=== PATIENT | male | born 1935 | race African-American/Black ===

== ENCOUNTER 2019-02-27 02:06 | Inpatient (IN) | payer OTHER ==
[~2019-02-27] VITALS: Ht 175.3 cm; Wt 86.2 kg
[2019-02-27] VITALS (8 sets, daily range): BP systolic 111–176; BP diastolic 65–91
--- NOTE | ~2019-02-27 | H ---
[facility] [place] [address] HISTORY AND PHYSICAL Name: MALINDA JOHNSON JR Room #: 215-P ADM IN M.R.#: [id number] Admission: 02/27/19 ������������������ Attend Phys: Roshan Emanuel MD Discharge: ������������������ Date of : 39 Report #: [id number] THIS REPORT FOR: //name// CC: Roshan Emanuel DATE OF SERVICE: 02/27/2019 ATTENDING PHYSICIAN: Dr. Emanuel. CHIEF COMPLAINT: Found to be confused and lying on the floor in the middle of the night. HISTORY OF PRESENT ILLNESS: The patient is an 83-year-old male who complains of having urinary frequency and nocturia. Reports that his called the paramedics when she found him on the floor last night. The patient's blood sugar was checked and it was low in the 40s. The patient was taken to the Emergency Room at [facility] where he was evaluated. The patient was noted to have elevated troponin and some cardiac murmur. He denied having any chest pain, did not complain of any breathing difficulty. Since his blood sugar has been normalized, he has been alert and denies having any headache or any focal weakness. On his lab work, it is also noted that his urine was positive for nitrites with increased white cells. PAST MEDICAL HISTORY: Significant for a history of hypertension, diabetes mellitus type 2, dyslipidemia and benign prostatic hypertrophy. MEDICATIONS: He has been on his glimepiride 2 mg daily, metformin 500 mg 3 times a day, Sensipar 30 mg daily, aspirin 325 mg daily, tamsulosin 0.4 mg daily, atorvastatin 10 mg daily, lisinopril 20 mg daily. ALLERGIES: He is not known to be allergic to medication. SOCIAL HISTORY: He is , lives with his . He does not smoke. He drinks alcohol occasionally. REVIEW OF SYSTEMS: He did not have any chest pain, headache, visual symptoms, nausea, vomiting, abdominal pain or any focal weakness. PHYSICAL EXAMINATION: GENERAL: Pleasant elderly gentleman who was sitting by the bed. He did not appear to be in any distress. He was awake, alert, oriented to place and person. VITAL SIGNS: He was afebrile, pulse of 93 per minute and regular, respiratory rate was 17, blood pressure was elevated at 172/89, oxygen saturation 100% on room air. HEENT: Skull was atraumatic. There was no pallor, no icterus. Mucosa was [facility] [address] [place] [address] HISTORY AND PHYSICAL Name: MALINDA JOHNSON Room #: 215-P [facility] IN [facility]#: [id number] Admission: 02/27/19 ������������������ Attend Phys: Roshan Emanuel MD Discharge: ������������������ Date of : 39 Report #: [id number]. NECK: Supple. LUNGS: Clear to auscultation bilaterally with no wheezing or crackles. HEART: First and second heart sounds with a short ejection systolic murmur. There was no gallop. ABDOMEN: Soft, nontender, bowel sounds normally heard. EXTREMITIES: Did not reveal any edema. NEUROLOGIC: Cranial nerve examination was normal. Speech was normal. The patient was moving all 4 extremities equally and normally. LABORATORY DATA: Labs on admission showed a troponin of 0.1, glucose was 78. This morning, white cell count was 6.6, hemoglobin 11.6, hematocrit 35.9 and a platelet count of 156. Sodium was 141, potassium 3.8, chloride of 108, bicarbonate of 24, BUN of 19, creatinine of 1.2, glucose was 97 in the morning labs and UA done was positive for blood with positive nitrites and large number of white cells. ASSESSMENT: 1. Hypoglycemia. 2. Elevated troponin. 3. Suspect urinary tract infection. 4. Hypertension. 5. Dyslipidemia. 6. Diabetes mellitus type 2. PLAN: To restart his blood pressure medication and also start him on Keflex p.o., await the urine culture and have a cardiology consultation for evaluation of the cardiac murmur and monitor him closely regarding his elevated troponin in the Coronary Care Unit. Also, we will hold his diabetic medications and monitor his blood sugars this today. ��������������������������������������������� ���������������������������������������� By: ��������������������������������������������� 0933 1036 Rosalee Euceda MD /nt
[~2019-02-27 02:06] MED LIST: DIABETA 5MG TABL5 MG PO; HYTRIN 2MG CAPSU2 M1 PO; LISINOPRIL10 MG PO; METFORMIN HCL500 MG PO; NAPROSYN500 MG PO; NORCO 5-325 TA1 EACH PO; SIMVASTATIN40 MG PO
[2019-02-27] MEDS ORDERED: AMARYL2 MG PO (02:30)
[2019-02-27] MEDS ORDERED: METFORMIN HCL500 MG PO (02:31)
[2019-02-27] MEDS ORDERED: SENSIPAR 30 MG30 M1 PO (02:32)
[2019-02-27] MEDS ORDERED: ASPIRIN325 PO (02:32)
[2019-02-27] MEDS ORDERED: FLOMAX0.4 MG PO (02:32)
[2019-02-27] MEDS ORDERED: LIPITOR10 MG PO (02:33)
[2019-02-27] MEDS ORDERED: LISINOPRIL20 MG PO (02:34)
[2019-02-27 02:38] LABS: URINE BILIRUBIN NEGATIVE (Negative); URINE BLOOD 3+ (Negative); URINE CLARITY CLEAR; URINE COLOR YELLOW; URINE GLUCOSE-RANDOM* NEGATIVE (Negative); URINE KETONES NEGATIVE (Negative); URINE PROTEIN (DIPSTICK) 1+ (Negative); URINE SPECIFIC GRAVITY 1.025 (1.005-1.035); URINE UROBILINOGEN 0.2 E.U./dl (0.2-1.0)
[2019-02-27 02:47] LABS: ABSOLUTE NEUTROPHILS 5.1 thou/uL (1.4-8.2); BASOPHILS 0.9 % (0.0-2.0); EOSINOPHILS 1.5 % (0.0-3.0); HEMATOCRIT 35.9 % (42.0-52.0); HEMOGLOBIN 11.6 gm/dL (14.0-18.0); LYMPHOCYTES 12.1 % (24.0-44.0); MCH 29.5 pg (26.0-34.0); MCHC 32.2 g/dL (28.0-37.0); MCV 91.6 fL (80.0-100.0); MONOCYTES 8.1 % (1.0-8.0); PLATELET COUNT 156 thou/uL (150-400); POLYS 77.4 % (36.0-66.0); RBC 3.92 mil/uL (4.50-6.00); RDW 14.3 % (10.5-14.5); WBC 6.6 thou/uL (4.0-11.0)
[2019-02-27 02:47] LABS: BACTERIA-REFLEX >30 Many /HPF (None Seen); CRYSTALS None Seen /LPF (None Seen); FINE GRANULAR CASTS 0-3 Few /LPF (None Seen); MUCUS 0-3 Light strn/LPF (None Seen); SQUAMOUS 0-3 Few /LPF (0-3); TRANSITIONAL EPITHEL CELL 0-3 Few /LPF (None Seen); URINE LEUKOCYTES-REFLEX 2+ (Negative); URINE NITRITE-REFLEX POSITIVE (Negative); URINE RBC >20 Many /HPF (0-2); URINE WBC-REFLEX >25 Many /HPF (0-5)
[2019-02-27 02:56] LABS: CREATININE 1.2 mg/dL (0.7-1.3); POTASSIUM 3.8 mmol/L (3.5-5.1)
[2019-02-27 03:04] LABS: TROPONIN-I 0.1 ng/mL (<0.06)
[2019-02-27 04:05] LABS: LARGE PLATELETS OCCASIONAL
--- NOTE | 2019-02-27 05:25 | NUR ---
PT ARRIVED UNIT AT ABOUT 0500. PT A/OX4. VITALS STABLE, BP ELEVATED 179/89. ASSESSMENT CHARTED. BG 97 ON ARRIVAL. NO COMPLAINTS OF PAIN, NO COMPLAINTS OF CHEST PAIN. ADMISSION COMPLETED. PT STABLE AND RESTING COMFORTABLY IN BED. WILL CONTINUE TO MONITOR. FALL PRECAUTIONS IN PLACE.
[2019-02-27 09:27] LABS: CHOLESTEROL 126 mg/dL (<200); HDL CHOLESTEROL 59 mg/dL (>40); LDL CHOLESTEROL 63 mg/dL (<100); TC:HDL 2.1 Ratio (Not establshd); TRIGLYCERIDE 24 mg/dL (<150); VLDL 5 mg/dL (<40)
[2019-02-27 09:28] LABS: SERUM ASSESSMENT Clear
--- NOTE | 2019-02-27 11:12 | NUR ---
AAOX4. NO COMPLAINTS. CAROTID DOPPLER IN PROGRESS. WILL CONTINUE TO FOLLOW.
--- NOTE | 2019-02-27 19:42 | NUR ---
ASSUMED CARE AT 1300, SHIFT ASSESSMENT DONE, MEDS GIVEN, VSS. DENIES ANY PAIN, NAUSEA, VOMITING. UP WITH STANDBY ASSIST, ROOM AIR, NO SKIN ISSUES. NSR TO SINUS ANA ON THE MONITOR. ACHS, NO COVERAGE NEEDED. WILL CONTINUE TO ASSESS AND ASSIST WITH ADLs NEEDED.
[2019-02-28 00:15] VITALS: BP 143/77
--- NOTE | 2019-02-28 00:21 | NUR ---
ASSESSMENTS CHARTED. MEDS CHARTED. SINUS ANA ON TELEMETRY. ROOM AIR. BLOOD GLUCOSE LEVEL WAS 160 AT HS. UP WITH STANDBY ASSIST. NO SKIN ISSUES, NO PAIN. PLAN OF CARE IS ECHO IN MORNING, STRESS TEST AN OUTPATIENT. UA POSITIVE FOR BACTERIA, ORAL ABX GIVEN. FALL PRECAUTIONS IN PLACE.
[2019-02-28 04:34] VITALS: BP 130/76
[2019-02-28 07:20] VITALS: BP 139/83
--- NOTE | 2019-02-28 08:06 | 2DMMODE ---
Formerly [facility] [address] [place] [address] 2 D/M-MODE ECHOCARDIOGRAM Name: MALINDA JOHNSON Room #: 215-P ADM IN M.R.#: [id number] ������������� Admission: 02/27/19 ������������� Attend Phys: Monie Bishop Discharge: ��� ������������� ��� Date of : 39 Date of Service: 02/28/19 0806 �� Report #: [id number] �������� ��������������������������������������������[id number] THIS REPORT FOR: //name// APPROVED REPORT Study performed: 02/27/2019 10:36:30 EXAM: Comprehensive 2D, Doppler, and color-flow Echocardiogram Patient Location: Bedside Room #: 215 Status: on-call BSA: 2.02 HR: 51 bpm BP: 172/89 mmHg Rhythm: NSR Indications Syncope Elevated Troponin Bradycardia (rates in 50s) 2D Dimensions RVDd: 26.53 mm IVSd: 15.43 (7-11mm) LVOT Diam: 20.42 (18-24mm) LVDd: 49.18 mm PWd: 10.74 (7-11mm) Ascending Ao: 30.14 (22-36mm) LVDs: 29.99 (25-40mm) Left Atrium: 43.14 (27-40mm) Aortic Root: 31.00 mm Volumes Left Atrial Volume (Systole) Single Plane 4CH: 68.16 mL Single Plane 2CH: 35.33 mL LA ESV Index: 27.00 mL/m2 Aortic Valve AoV Peak Daniel.: 1.80 m/s AO Peak Gr.: 13.03 mmHg LVOT Max P.35 mmHg AO Mean Gr.: 5.67 mmHg AO V2 Mean: 1.10 m/s LVOT Max V: 1.45 m/s AO V2 VTI: 39.58 cm JESSICA Vmax: 2.62 cm2 Mitral Valve E/A Ratio: 0.9 [facility] [address] [place] [address] 2 D/M-MODE ECHOCARDIOGRAM Name: MALINDA JOHNSON Room #: 215-P [facility] IN M.R.#: [id number] ������������� Admission: 02/27/19 ������������� Attend Phys: Monie Bishop Discharge: ��� ������������� ��� Date of : 39 Date of Service: 02/28/19 0806 �� Report #: [id number] �������� ��������������������������������������������[id number] MV Decel. Time: 249.45 ms MV E Max Daniel.: 0.76 m/s MV A Daniel.: 0.82 m/s MV PHT: 72.34 ms IVRT: 156.86 ms TDI E/Lateral E': 10.86 Lateral E' Daniel.: 0.07 m/s Pulmonary Valve PV Peak Daniel.: 0.87 m/s PV Peak Gr.: 3.02 mmHg Tricuspid Valve TR Peak Daniel.: 2.47 m/s RAP Estimate: 5.00 mmHg TR Peak Gr.: 24.41 mmHg PA Pressure: 30.00 mmHg Left Ventricle The left ventricle is normal size. There is normal LV segmental wall motion. Moderate septal hypertrophy. The left ventricular systolic function is normal. The left ventricular ejection fraction is within the normal range. LVEF is 60%. Mild diastolic dysfunction is present (impaired relaxation pattern). Right Ventricle The right ventricle is normal size. The right ventricular systolic function is normal. Atria The left atrium size is normal. The right atrium size is normal. Aortic Valve Aortic valve not well visualized, heavily calcified. Mild aortic regurgitation. There is trace valvular aortic stenosis. Calculated aortic valve area is 2.6 cm2 with maximum pressure gradient of 13 mmHg and mean pressure gradient of 6 mmHg. Mitral Valve The mitral valve is normal in structure. Mild mitral regurgitation. No evidence of mitral valve stenosis. Tricuspid Valve The tricuspid valve is normal in structure. Mild tricuspid regurgitation. Estimated pulmonary artery pressure of 30 [facility] [address] [place] [address] 2 D/M-MODE ECHOCARDIOGRAM Name: MALINDA JOHNSON Room #: 215-P [facility] IN [facility]#: [id number] ������������� Admission: 02/27/19 ������������� Attend Phys: Monie Bishop Discharge: ��� ������������� ��� Date of : 39 Date of Service: 02/28/19 0806 �� Report #: [id number] �������� ��������������������������������������������[id number] mmHg. Pulmonic Valve Pulmonic valve is not well visualized, normall by doppler. Mild pulmonic regurgitation. Great Vessels The aortic root is normal in size. IVC is normal in size and collapses >50% with inspiration. Pericardium There is no pericardial effusion. <Conclusion> The left ventricle is normal size. Moderate septal hypertrophy. LVEF is 60%. Mild diastolic dysfunction is present (impaired relaxation pattern). The right ventricle is normal size. The left atrium size is normal. Aortic valve not well visualized, heavily calcified. Mild aortic regurgitation. There is trace valvular aortic stenosis. Calculated aortic valve area is 2.6 cm2 with maximum pressure gradient of 13 mmHg and mean pressure gradient of 6 mmHg. Mild mitral regurgitation. Mild tricuspid regurgitation. Estimated pulmonary artery pressure of 30 mmHg. The aortic root is normal in size. There is no pericardial effusion. ��������������������������������������������� <ELECTRONICALLY SIGNED> ���������������������������������������� By: Yair Sosa MD, FACC ��������������������������������������������� 02/28/19805 5 5 Yair Sosa MD, FACC /INF
[2019-02-28] MEDS ORDERED: KEFLEX500 M1 PO (09:03)
[2019-02-28 09:14] VITALS: BP 139/83
--- NOTE | 2019-02-28 14:14 | EKG ---
[address] [address] ELECTROCARDIOGRAM REPORT Name: JOHNSONMALINDA CAIN Room #: 215-P [facility] IN M.R.#: [id number] ������������������ Admission: 02/27/19 ������������������ Attend Phys: Roshan Emanuel MD Discharge: 02/28/19 ������������������ Date of : 39 Report #: [id number] ����������������������������������������������������������������� [id number] THIS REPORT FOR: //name// [facility] ED Test Date: 2019-02-27 Test Time: 02:27:27 Pat Name: MALINDA JOHNSON Department: Room: [facility] Gender: M Sand Miller: GEOVANNA CABELLO : 1935 Requested By: Cirilo Riley Order Number: [id number] MD: Praneeth Avendaño Measurements Intervals [place] Rate: 59 P: 19 UT: 169 QRS: 2 QRSD: 84 T: 32 QT: 428 QTc: 424 Interpretive Statements Sinus bradycardia Otherwise normal tracing No previous ECG available for comparison Electronically Signed On 02-28-2019 14:14:23 CDT by Praneeth Avendaño [email or web address] ��������������������������������������������� <ELECTRONICALLY SIGNED> ���������������������������������������� By: Praneeth Avendaño MD, [facility] ��������������������������������������������� 02/28/19 1414 0227 6 Praneeth Avendaño MD, FACC /EPI
--- NOTE | 2019-02-28 14:16 | EKG ---
[address] [address] ELECTROCARDIOGRAM REPORT Name: JOHNSONMALINDA CAIN Room #: 215-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: [email or web address] : 1935 Requested By: Cirilo Riley Order Number: [id number] MD: Praneeth Avendaño Measurements Intervals [place] Rate: 50 P: 29 MT: 167 QRS: 30 QRSD: 86 T: 56 QT: 445 QTc: 406 Interpretive Statements Sinus bradycardia Otherwise normal tracing No previous ECG available for comparison Electronically Signed On 02-28-2019 14:16:44 CDT by Praneeth Avendaño [email or web address] ��������������������������������������������� <ELECTRONICALLY SIGNED> ���������������������������������������� By: Praneeth Avendaño MD, [facility] ��������������������������������������������� 02/28/19 1416 0732 1 Praneeth Avendaño MD, FACC /EPI
--- NOTE | 2019-02-28 18:31 | NUR ---
ASSUMED CARE AT 0700, SHIFT ASSESSMENT DONE, MEDS GIVEN, VSS. DENIES PAIN, NAUSEA, VOMITING. DISCHARGE ORDER RECEIVED, PERIPHERAL IV WAS TAKEN OUT. SCRIPT AND DISCHARGE PAPER WORK GIVEN. PT WAS TRANSPORTED OUT AT 1000 WITH NURSING STAFF.
== END 2019-02-28 11:22 | disposition home or self-care (01) | DRG 638 ==
LOC: ER 02:06 → EROBS 03:59 → 2N 04:36
PROVIDERS: Emergency Medicine; Internal Medicine Cardiovascular Disease; ADMIT Internal Medicine Geriatric Medicine
DX: E11.649 Type 2 diabetes mellitus with hypoglycemia without coma (principal); N39.0 Urinary tract infection, site not specified; I10 Essential (primary) hypertension; N40.0 Benign prostatic hyperplasia without lower urinary tract symptoms; R01.1 Cardiac murmur, unspecified; E78.5 Hyperlipidemia, unspecified; Z79.82 Long term (current) use of aspirin; Z79.899 Other long term (current) drug therapy
CPT/HCPCS: 10081